=== PATIENT | female | born 1980 | race Caucasian/White ===

== ENCOUNTER 2017-07-17 14:57 | Emergency (ER) | payer OTHER ==
--- NOTE | 2017-07-17 15:04 | PDOC ---
Rapid Medical Evaluation Time Seen by Provider: 07/17/17 14:59 Medical Evaluation: 07/17/17 14:59 I have performed a brief in-person evaluation of this patient. The patient presents with a chief complaint of: lump to neck x 3 days, "last night i didn't feel good", +nausea, dry mouth, denies f/v/d Pertinent physical exam findings: tenderness to L side of neck I have ordered the following: soft tissue neck The patient will proceed to the ED for further evaluation. Discharge Disposition - Diagnosis Lump on neck - Referrals - Patient Instructions - Post Discharge Activity
[2017-07-17 15:11] VITALS: BMI 32.4
--- NOTE | 2017-07-17 16:58 | PDOC ---
History of Present Illness - General Chief Complaint: Wound Stated Complaint: NECK PAIN, ABSCESS Time Seen by Provider: 07/17/17 14:59 History Source: Patient - History of Present Illness Timing/Duration: other Associated Symptoms: denies: fever/chills, malaise, nausea/vomiting Past History - Past Medical History Allergies/Adverse Reactions: Allergies Allergy/AdvReac Type Severity Reaction Status Date / Time seafood Allergy Uncoded 07/17/17 15:06 Home Medications: Ambulatory Orders NK [No Known Home Medication] 07/17/17 COPD: No - Suicide/Smoking/Psychosocial Hx Smoking History: Never smoked Have you smoked in the past 12 months: No Information on smoking cessation initiated: No Substance Use Type: None Review of Systems - Review of Systems Constitutional: No: Chills, Fever, Unexplained wgt Loss HEENTM: No: Ear Pain, Throat Pain, Mouth Pain Respiratory: No: Cough *Physical Exam - Vital Signs Last Vital Signs Temp Pulse Resp BP Pulse Ox 98.4 F 77 18 107/75 100 07/17/17 15:07 07/17/17 15:07 07/17/17 15:07 07/17/17 15:07 07/17/17 15:07 - Physical Exam General Appearance: Yes: Appropriately Dressed. No: Apparent Distress HEENT: positive: Normal Voice, Other (~3-4cm hard, fixed, tender mass to chin/ submental area, no fluctuance, no overlying erythema,) Neck: positive: Supple Respiratory/Chest: negative: Respiratory Distress Integumentary: positive: Dry, Warm Neurologic: positive: Fully Oriented, Alert, Normal Mood/Affect Medical Decision Making - Medical Decision Making 07/17/17 16:44 37-year-old female, no significant history, here with neck mass. Patient states several days ago, felt a painless small lump to left side of neck, that disappeared but now complaining of chin and submental swelling. No trauma. Denies dental pain, URI symptoms, fever, chills, nausea and vomiting. No unexplained weight loss. No tobacco history. No history of similar symptoms. No history of salivary gland disorders. See exam Possible facial/neck abscess vs lymphadenopathy vs salivary gland d/o vs malignancy Stable and maintaining airway w/ ~3-4 cm hard, tender, fixed mass to chin/ submental area -pain control -labs -CT 07/17/17 17:01 *DC/Admit/Observation/Transfer Diagnosis at time of Disposition: Lump on neck - Referrals Referrals: Kait St MD [Primary Care Provider] - - Patient Instructions - Post Discharge Activity
[2017-07-17 17:31] LABS: BASO % 0.5 % (0-2.0); EOS % 2.3 % (0-4.5); HEMATOCRIT 40.3 % (32.4-45.2); HEMOGLOBIN 13.8 GM/dL (10.7-15.3); LYMPH % 28.3 % (8-40); MCH 29.2 pg (25.7-33.7); MCHC 34.2 g/dl (32.0-36.0); MEAN CELL VOLUME 85.4 fl (80-96); MEAN PLT VOLUME 9.4 fl (7.5-11.1); MONO % 7.1 % (3.8-10.2); NEUT % 61.8 % (42.8-82.8); PLATELET COUNT 248 K/MM3 (134-434); RBC 4.72 M/mm3 (3.60-5.2); RDW 13.5 % (11.6-15.6); WHITE BLOOD COUNT 6.8 K/mm3 (4.0-10.0)
[2017-07-17 18:08] LABS: ALBUMIN 4.4 g/dl (3.4-5.0); ANION GAP 9 (8-16); BILIRUBIN,TOTAL 0.6 mg/dL (0.2-1.0); BLOOD UREA NITROGEN 12 mg/dL (7-18); CALCIUM 9.2 mg/dL (8.5-10.1); CHLORIDE 107 mmol/L (98-107); CO2 27 mmol/L (21-32); CREATININE 0.6 mg/dL (0.55-1.02); GLUCOSE,RANDOM 75 mg/dL (74-106); POTASSIUM 3.7 mmol/L (3.5-5.1); SGOT/AST 62 U/L (15-37); SGPT/ALT 82 U/L (12-78); SODIUM 143 mmol/L (136-145)
[2017-07-17 18:09] LABS: ALK PHOS 85 U/L (45-117); TOT PROT 8.1 g/dl (6.4-8.2)
--- NOTE | 2017-07-17 19:39 | PDOC ---
*Physical Exam - Vital Signs Last Vital Signs Temp Pulse Resp BP Pulse Ox 98.4 F 77 18 107/75 100 07/17/17 15:07 07/17/17 15:07 07/17/17 15:07 07/17/17 15:07 07/17/17 15:07 - Physical Exam General Appearance: Yes: Appropriately Dressed HEENT: positive: Other (submandibular edema. + palpable tender mobile mass, erythema and warm to touch) ED Treatment Course - LABORATORY CBC & Chemistry Diagram: 07/17/17 17:24 07/17/17 17:24 - ADDITIONAL ORDERS Additional order review: Laboratory Results 07/17/17 07/17/17 07/17/17 17:24 17:24 16:16 Sodium 143 Potassium 3.7 Chloride 107 Carbon Dioxide 27 Anion Gap 9 BUN 12 Creatinine 0.6 Creat Clearance w eGFR > 60 Random Glucose 75 Calcium 9.2 Total Bilirubin 0.6 AST 62 H ALT 82 H Alkaline Phosphatase 85 Total Protein 8.1 Albumin 4.4 Serum , Qual Negative Urine HCG, Qual Negative 07/17/17 17:24 RBC 4.72 MCV 85.4 MCHC 34.2 RDW 13.5 MPV 9.4 Neutrophils % 61.8 Lymphocytes % 28.3 Monocytes % 7.1 Eosinophils % 2.3 D Basophils % 0.5 Medical Decision Making - Medical Decision Making 07/19/17 02:[address]: subcutaneous edema, reactive lymph nodes will treat cellulitis. close pmd follow up for wound check. strict return precautions reviewed with patient. *DC/Admit/Observation/Transfer Diagnosis at time of Disposition: Lump on neck Cellulitis Qualifiers: Site of cellulitis: face Qualified Code(s): L03.211 - Cellulitis of face - Discharge Dispostion Disposition: HOME - Prescriptions Prescriptions: Cephalexin Monohydrate [Keflex -] 500 mg PO Q8H #28 capsule Sulfamethoxazole/Trimethoprim [Bactrim Ds -] 1 tab PO BID #14 tablet - Referrals Referrals: Kait St MD [Primary Care Provider] - - Patient Instructions Printed Discharge Instructions: DI for Wound Infection Additional Instructions: apply warm compress to the area. take cephalexin and bactrim as prescribed. take ibuprofen for pain. follow up with your doctor for a wound check in 2 days. - Post Discharge Activity Forms/Work/School Notes: Back to Work
[2017-07-17] MEDS ORDERED: SULFAMETHOXAZOLE/TRIMETHOPRIM 800MG/160MG D.S. TABLET PO ONE (20:25)
[2017-07-17] MEDS ORDERED: CEPHALEXIN MONOHYDRATE 500 MG CAPSULE (UD) PO ONE (20:25)
[2017-07-17] MEDS ORDERED: SULFAMETHOXAZOLE/TRIMETHOPRIM 800MG/160MG D.S. TABLET ONE (20:34)
[2017-07-17] MEDS ORDERED: CEPHALEXIN MONOHYDRATE 500 MG CAPSULE (UD) ONE (20:34)
[2017-07-17 20:47] VITALS: BP 124/78; PULSE 76; TEMP 97.8
== END 2017-07-17 20:47 | disposition home or self-care (01) ==
LOC: JERFT 14:57 → JER 14:57
DX: L03.211 Cellulitis of face (principal); Z91.013 Allergy to seafood
CPT/HCPCS: 36415; 70491-TC; 80053; 84703; 85025; 99282-25

== ENCOUNTER 2018-06-13 19:27 | Emergency (ER) | payer OTHER ==
[2018-06-13 20:16] VITALS: BMI 30.8
[2018-06-13] MEDS ORDERED: ACETAMINOPHEN 325 MG TABLET (FP) PO ONE (20:35)
[2018-06-13] MEDS ORDERED: ACETAMINOPHEN 325 MG TABLET (FP) ONE (20:54)
[2018-06-13 21:09] LABS: BASO % 0.3 % (0-2.0); EOS % 3.2 % (0-4.5); HEMATOCRIT 37.6 % (32.4-45.2); HEMOGLOBIN 13.3 GM/dL (10.7-15.3); LYMPH % 11.6 % (8-40); MCH 30.1 pg (25.7-33.7); MCHC 35.5 g/dl (32.0-36.0); MEAN CELL VOLUME 84.6 fl (80-96); MEAN PLT VOLUME 9.8 fl (7.5-11.1); MONO % 8.5 % (3.8-10.2); NEUT % 76.4 % (42.8-82.8); PLATELET COUNT 192 K/MM3 (134-434); RBC 4.44 M/mm3 (3.60-5.2); RDW 13.9 % (11.6-15.6); WHITE BLOOD COUNT 8.5 K/mm3 (4.0-10.0)
[2018-06-13 21:30] LABS: ALBUMIN 4.1 g/dl (3.4-5.0); ALK PHOS 87 U/L (45-117); ANION GAP 8 MMOL/L (8-16); BILIRUBIN,TOTAL 0.4 mg/dL (0.2-1); BLOOD UREA NITROGEN 10 mg/dL (7-18); CALCIUM 8.2 mg/dL (8.5-10.1); CHLORIDE 107 mmol/L (98-107); CO2 25 mmol/L (21-32); CREATININE 0.6 mg/dL (0.55-1.3); GLUCOSE,RANDOM 78 mg/dL (74-106); POTASSIUM 4.1 mmol/L (3.5-5.1); SGOT/AST 49 U/L (15-37); SGPT/ALT 56 U/L (13-61); SODIUM 139 mmol/L (136-145); TOT PROT 7.4 g/dl (6.4-8.2)
--- NOTE | 2018-06-13 22:17 | PDOC ---
History of Present Illness <Immanuel Frank - Last Filed: 06/13/18 23:03> - History of Present Illness Initial Comments: 06/13/18 22:10 The patient is a 38 year old female with no PMH who presents to the emergency department via EMS with chest pain. The patient notes she woke up feeling unwell today, with nasal congestion and cough. She went shopping, picked up her son from school, and when she went to lay down she started to experience chest pain. The patient notes she started to panic, started shaking and felt short of breath. The patient notes her symptoms mostly resolved since coming to the ED, but she still endorses some tingling sensation in her arm. The patient reports that she had a similar episode 4 years ago and was told she had a respiratory infection. The patient has a family history of heart attack (paternal father). The patient denies s fever, chills, nausea, vomit, diarrhea, constipation, dysuria, frequency, urgency and hematuria. Allergies: NKDA Past surgical history:None reported Social history: No tobacco use. Occasional alcohol use. PCP: Jose D Florez <Walter Alexander - Last Filed: 06/13/18 23:44> - General Chief Complaint: Chest Pain Stated Complaint: CHEST PAIN Time Seen by Provider: 06/13/18 19:57 Past History <Immanuel Frank - Last Filed: 06/13/18 23:03> - Past Medical History COPD: No Other medical history: denies - Immunization History Td Vaccination: Yes TDAP Vaccination: Yes Immunization Up to Date: Yes - Suicide/Smoking/Psychosocial Hx Smoking History: Never smoked Have you smoked in the past 12 months: No Information on smoking cessation initiated: No Hx Alcohol Use: No Drug/Substance Use Hx: No Substance Use Type: None <Walter Alexander - Last Filed: 06/13/18 23:44> - Past Medical History Allergies/Adverse Reactions: Allergies Allergy/AdvReac Type Severity Reaction Status Date / Time No Known Drug Allergies Allergy Verified 06/13/18 20:40 seafood Allergy Uncoded 07/17/17 15:06 Home Medications: Ambulatory Orders Naproxen/Esomeprazole Mag [Vimovo Dr 500-20 mg Tablet] 1 each PO BID 06/13/18 Review of Systems - Review of Systems Comments:: 06/13/18 22:17 "GENERAL/CONSTITUTIONAL: No fever or chills. No weakness. HEAD, EYES, EARS, NOSE AND THROAT: (+) runny nose. No change in vision. No ear pain or discharge. No sore throat. CARDIOVASCULAR: (+) chest pain, no loss of consciousness RESPIRATORY: (+) dry cough. no wheezing, or hemoptysis. GASTROINTESTINAL: no vomiting, diarrhea or constipation. GENITOURINARY: No dysuria, frequency, or change in urination. MUSCULOSKELETAL: No joint or muscle swelling or pain. No neck or back pain. SKIN: No rash NEUROLOGIC: No vertigo, no change in strength/sensation. ENDOCRINE: No increased thirst. No abnormal weight change. HEMATOLOGIC/LYMPHATIC: No anemia, easy bleeding, or history of blood clots. ALLERGIC/IMMUNOLOGIC: No hives or skin allergy. <Walter Alexander - Last Filed: 06/13/18 23:44> *Physical Exam - Vital Signs Last Vital Signs Temp Pulse Resp BP Pulse Ox 98.1 F 87 20 114/73 100 06/13/18 20:14 06/13/18 20:14 06/13/18 20:14 06/13/18 20:14 06/13/18 20:14 <Immanuel Frank - Last Filed: 06/13/18 23:03> - Vital Signs Last Vital Signs Temp Pulse Resp BP Pulse Ox 98.1 F 87 20 114/73 100 06/13/18 20:14 06/13/18 20:14 06/13/18 20:14 06/13/18 20:14 06/13/18 20:14 - Physical Exam Comments: 06/13/18 22:17 "GENERAL: Awake, alert, and fully oriented, in no acute distress. HEAD: No signs of trauma EYES: PERRLA, EOMI, sclera anicteric, conjunctiva clear ENT: Auricles normal inspection, hearing grossly normal, nares patent, oropharynx clear without exudates. Moist mucosa NECK: Nontender, no stepoffs, Normal ROM, supple, no lymphadenopathy, JVD, or masses LUNGS: Breath sounds equal, clear to auscultation bilaterally. No wheezes, and no crackles HEART: Regular rate and rhythm, normal S1 and S2, no murmurs, rubs or gallops ABDOMEN: Soft, nontender, normoactive bowel sounds. No guarding, no rebound. No masses EXTREMITIES: Normal range of motion, no edema. No clubbing or cyanosis. No cords, erythema, or tenderness NEUROLOGICAL: Cranial nerves II through XII intact. 5/5 strength and sensation in all extremities, Normal speech, normal gait, normal cerebellar function SKIN: Warm, Dry, normal turgor, no rashes or lesions noted. <Ou,Walter - Last Filed: 06/13/18 23:44> Moderate Sedation - Procedure Monitoring Vital Signs: Procedure Monitoring Vital Signs Temperature 98.1 F 06/13/18 20:14 Pulse Rate 87 06/13/18 20:14 Respiratory Rate 20 06/13/18 20:14 Blood Pressure 114/73 06/13/18 20:14 O2 Sat by Pulse Oximetry (%) 100 06/13/18 20:14 <Immanuel Frank - Last Filed: 06/13/18 23:03> - Procedure Monitoring Vital Signs: Procedure Monitoring Vital Signs Temperature 98.1 F 06/13/18 20:14 Pulse Rate 87 06/13/18 20:14 Respiratory Rate 20 06/13/18 20:14 Blood Pressure 114/73 06/13/18 20:14 O2 Sat by Pulse Oximetry (%) 100 06/13/18 20:14 <Ou,Walter - Last Filed: 06/13/18 23:44> Heart Score/ECG Review - History History: Slightly suspicious - Electrocardiogram EKG: Normal - Age Age: </= 45 - Risk Factors Risk Factors Heart Score: Yes Positive family hx of cardiac disease Based on the list above the patient has:: 1-2 risk factors - Troponin Troponin: </= normal limit - Score Heart Score - Total: 1 - ECG Impressions Comment:: 06/13/18 22:17 NSR, no ELSA/STDs, no TWIs, axis wnl, intervals wnl , rate 78 <Ou,Walter - Last Filed: 06/13/18 23:44> ED Treatment Course - LABORATORY CBC & Chemistry Diagram: 06/13/18 20:51 06/13/18 20:51 - ADDITIONAL ORDERS Additional order review: Laboratory Results 06/13/18 06/13/18 21:58 20:51 Sodium 139 Potassium 4.1 Chloride 107 Carbon Dioxide 25 Anion Gap 8 BUN 10 Creatinine 0.6 Creat Clearance w eGFR 112.49 Random Glucose 78 Calcium 8.2 L Total Bilirubin 0.4 AST 49 H ALT 56 Alkaline Phosphatase 87 Creatine Kinase 168 Creatine Kinase Index 0.6 CK-MB (CK-2) 1.1 Troponin I < 0.02 Total Protein 7.4 Albumin 4.1 Urine Color Yellow Urine Appearance Clear Urine pH 6.5 Ur Specific [place] 1.014 Urine Protein Negative Urine Glucose (UA) Negative Urine Ketones Negative Urine Blood Negative Urine Nitrite Negative Urine Bilirubin Negative Urine Urobilinogen 1.0 Ur Leukocyte Esterase Trace Urine WBC (Auto) 1 Urine RBC (Auto) 2 Urine Casts (Auto) 0 U Epithel Cells (Auto) 0.8 Urine Bacteria (Auto) 22.842 Urine HCG, Qual Negative 06/13/18 20:51 RBC 4.44 MCV 84.6 MCHC 35.5 RDW 13.9 MPV 9.8 Neutrophils % 76.4 D Lymphocytes % 11.6 D Monocytes % 8.5 Eosinophils % 3.2 Basophils % 0.3 - Medications Given in the ED: ED Medications Discontinued Medications Generic Name Dose Route Start Last Admin Trade Name Freq PRN Reason Stop Dose Admin Acetaminophen 650 mg 06/13/18 20:35 06/13/18 20:56 Tylenol - PO 06/13/18 20:36 650 mg ONCE ONE Administration <Immanuel Frank - Last Filed: 06/13/18 23:03> - LABORATORY CBC & Chemistry Diagram: 06/13/18 20:51 06/13/18 20:51 - ADDITIONAL ORDERS Additional order review: Laboratory Results 06/13/18 20:51 Sodium 139 Potassium 4.1 Chloride 107 Carbon Dioxide 25 Anion Gap 8 BUN 10 Creatinine 0.6 Creat Clearance w eGFR 112.49 Random Glucose 78 Calcium 8.2 L Total Bilirubin 0.4 AST 49 H ALT 56 Alkaline Phosphatase 87 Creatine Kinase 168 Creatine Kinase Index 0.6 CK-MB (CK-2) 1.1 Troponin I < 0.02 Total Protein 7.4 Albumin 4.1 06/13/18 20:51 RBC 4.44 MCV 84.6 MCHC 35.5 RDW 13.9 MPV 9.8 Neutrophils % 76.4 D Lymphocytes % 11.6 D Monocytes % 8.5 Eosinophils % 3.2 Basophils % 0.3 - RADIOLOGY Radiology Studies Ordered: Category Date Time Status CHEST PA & LAT [RAD] Stat Radiology 06/13/18 20:33 Ordered - Medications Given in the ED: ED Medications Discontinued Medications Generic Name Dose Route Start Last Admin Trade Name Naresh PRN Reason Stop Dose Admin Acetaminophen 650 mg 06/13/18 20:35 06/13/18 20:56 Tylenol - PO 06/13/18 20:36 650 mg ONCE ONE Administration <Walter Alexander - Last Filed: 06/13/18 23:44> Medical Decision Making - Medical Decision Making 06/13/18 22:18 38 F with atypical chest pain. Likely viral URI as pt also complains of dry cough and nasal congestion. Will r/o ACS. EKG wnl. - Labs, trop - CXR 06/13/18 23:42 Labs wnl CXR clear Pt likely with viral URI Pt is well appearing, with normal vitals. Clinically stable for DC at this time. I discussed the physical exam findings, ancillary test results and final diagnoses with the patient. I answered all of the patient's questions. The patient was satisfied with the care received and felt comfortable with the discharge plan and treatment plan. The patient agrees to follow up with the primary care physician within 24-72 hours. <Walter Alexander - Last Filed: 06/13/18 23:44> *DC/Admit/Observation/Transfer - Attestations Scribe Attestion: 06/13/18 23:03 Documentation prepared by Immanuel Frank, acting as medical equipment technician for Walter Alexander MD, <Immanuel Frank - Last Filed: 06/13/18 23:03> - Attestations Physician Attestion: 06/13/18 23:43 I, Dr. Walter Alexander MD, attest that this document has been prepared under my direction and personally reviewed by me in its entirety. I further attest, that it accurately reflects all work, treatment, procedures and medical decision -making performed by me. <Walter Alexander - Last Filed: 06/13/18 23:44> Diagnosis at time of Disposition: Atypical chest pain - Discharge Dispostion Disposition: HOME - Referrals Referrals: Jose D Chua [Primary Care Provider] - - Patient Instructions Printed Discharge Instructions: DI for Atypical Chest Pain Additional Instructions: You likely have a viral infection causing your symptoms. Take tylenol or motrin as needed for pain. If you experience worsening chest pain, shortness of breath, or any other concerning symptoms, return to the ER immediately. Otherwise, follow up with your primary doctor within 1 week. - Post Discharge Activity
[2018-06-13 22:47] LABS: HCG,QUALITATIVE URINE Negative
[2018-06-13 22:50] LABS: EPI CELLS 0.8 /HPF (0-5); HYALINE CASTS 0 /hpf (0-8); PH,URINE 6.5 (5.0-8.0); URINE APPEARANCE CLEAR; URINE BACTERIA 22.842 /hpf (NEGATIVE); URINE BILIRUBIN NEGATIVE (<2.0 mg/dL); URINE COLOR YELLOW; URINE GLUCOSE (UA) NEGATIVE (NEGATIVE); URINE KETONE NEGATIVE (NEGATIVE); URINE LEUK ESTERASE TRACE (NEGATIVE); URINE NITRITE NEGATIVE (NEGATIVE); URINE PROTEIN NEGATIVE (NEGATIVE); URINE RBC 2 /hpf (0-4); URINE WBC 1 /hpf (0-5)
[2018-06-14 00:04] VITALS: BP 111/73; PULSE 73; TEMP 98
--- NOTE | 2018-06-14 16:36 | EKG ---
Test Reason : Blood Pressure : / mmHG Vent. Rate : 078 BPM Atrial Rate : 078 BPM P-R Int : 126 ms QRS Dur : 072 ms QT Int : 400 ms P-R-T Axes : 050 043 010 degrees QTc Int : 456 ms NORMAL SINUS RHYTHM NORMAL ECG NO PREVIOUS ECGS AVAILABLE Confirmed by DAVID MONIQUE MD ([id number]) on 06/14/2018 4:36:37 PM Referred By: Confirmed By:DAVID MONIQUE MD
== END 2018-06-14 00:01 | disposition home or self-care (01) ==
LOC: JER 19:27
DX: R07.89 Other chest pain (principal)
CPT/HCPCS: 36415; 71046-TC-FY; 80053; 81003; 82550; 82553; 84484; 84703; 85025; 93005; 93010; 99283-25

== ENCOUNTER 2018-09-17 08:20 | Emergency (ER) | payer OTHER ==
[2018-09-17 08:28] VITALS: BP 136/80; PULSE 82; TEMP 98.5; BMI 28.3
[2018-09-17] MEDS ORDERED: CYCLOBENZAPRINE HCL 10 MG TABLET (FP) PO ONE (09:11)
[2018-09-17] MEDS ORDERED: IBUPROFEN 400 MG TABLET (FP) PO ONE ×3 (09:11→09:18)
[2018-09-17] MEDS ORDERED: CYCLOBENZAPRINE HCL 10 MG TABLET (FP) ONE (09:16)
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
== END 2018-09-17 09:51 | disposition home or self-care (01) ==
LOC: JERFT 08:20
DX: M54.2 Cervicalgia (principal); S13.4XXA Sprain of ligaments of cervical spine, initial encounter; V43.52XA Car driver injured in collision with other type car in traffic accident, initial encounter; Y93.89 Activity, other specified; Y92.410 Unspecified street and highway as the place of occurrence of the external cause
CPT/HCPCS: 72050-TC-FY; 99281-25

== ENCOUNTER 2019-10-17 11:53 | Emergency (ER) | payer OTHER ==
--- NOTE | 2019-10-17 12:11 | PDOC ---
Rapid Medical Evaluation Time Seen by Provider: 10/17/19 12:00 Medical Evaluation: Allergies Allergy/AdvReac Type Severity Reaction Status Date / Time No Known Drug Allergies Allergy Verified 09/17/18 08:25 seafood Allergy Uncoded 09/17/18 08:25 10/17/19 12:08 I performed a brief in-person evaluation of this patient. Pt is a 39 y/o female with history of asthma who presents to the ED with chest pressure and dyspnea on exertion for the last 3-4 days. She states the symptoms started today after starting Flagyl for BV. The patient denies any recent travel or known COVID contacts. Pertinent physical exam findings: clear lungs, O2 saturation 99%, speaking in full sentences I have ordered the following: ekg, cxr, labs Patient to proceed to ED for further evaluation. Discharge Disposition - Diagnosis Chest pressure - Referrals - Patient Instructions - Post Discharge Activity
[2019-10-17 12:16] VITALS: TEMP 98.9; BMI 31.5
[2019-10-17 12:51] LABS: BASO % 0.6 % (0-2.0); EOS % 1.2 % (0-4.5); HEMATOCRIT 41.5 % (32.4-45.2); HEMOGLOBIN 14.1 GM/dL (10.7-15.3); LYMPH % 18.8 % (8-40); MCH 28.9 pg (25.7-33.7); MONO % 7.2 % (3.8-10.2); NEUT % 72.2 % (42.8-82.8); PLATELET COUNT 238 K/MM3 (134-434); RBC 4.89 M/mm3 (3.60-5.2); RDW 13.7 % (11.6-15.6); WHITE BLOOD COUNT 7.8 K/mm3 (4.0-10.0)
[2019-10-17 12:59] LABS: PROTHROMBIN TIME (PATIENT) 11.8 SEC (9.7-13.0)
[2019-10-17 13:02] LABS: ACTIVATED PTT 27.9 SECONDS (25.2-36.5)
[2019-10-17 13:17] LABS: ALBUMIN 4.2 g/dl (3.4-5.0); ALK PHOS 76 U/L (45-117); ANION GAP 5 MMOL/L (8-16); BILIRUBIN,TOTAL 0.9 mg/dL (0.2-1); BLOOD UREA NITROGEN 14.1 mg/dL (7-18); CHLORIDE 107 mmol/L (98-107); CO2 28 mmol/L (21-32); CREATININE 0.6 mg/dL (0.55-1.3); GLUCOSE,RANDOM 82 mg/dL (74-106); MAGNESIUM 2.4 mg/dL (1.8-2.4); POTASSIUM 4.2 mmol/L (3.5-5.1); SGOT/AST 97 U/L (15-37); SGPT/ALT 132 U/L (13-61); SODIUM 140 mmol/L (136-145); TOT PROT 7.9 g/dl (6.4-8.2)
--- NOTE | 2019-10-17 14:14 | PDOC ---
History of Present Illness - General Chief Complaint: Chest Pain Stated Complaint: SOB Time Seen by Provider: 10/17/19 12:00 - History of Present Illness Initial Comments: 10/17/19 14:08 39yo F w/ asthma, amenorrhea, and on flagyl for BV p/w 3days intermittent CP w/ associated nausea and SOB. It started on Saturday while she was walking and resolved when she stopped to rest. She endorses R-sided heaviness and one episode of discomfort in the L neck. It tends to be exertional, and her chest is sensitive to the touch. Denies long trips/sedentary periods, trauma, SOB at rest, vomiting, leg pain, cough, fever, sore throat, recent illness, or similar episode. Also denies breast discharge or use of OCP contraception. Allergies to fish and takes Vitamin D3 PMH: fatty liver, Sickle cell trait, asthma, and amenorrhea. PSH: 10yrs ago FHx: father has had multiple [place], alive and in his 60s now. SHx: former smoker - quit 10 yrs ago. denies EtOH and illicit drug use. ROS CONSTITUTIONAL: Absent: fever, chills, diaphoresis, generalized weakness, malaise, loss of appetite HEENT: Absent: rhinorrhea, nasal congestion, throat pain CARDIOVASCULAR: Absent: syncope, palpitations, irregular heart rate, lightheadedness, peripheral edema RESPIRATORY: ++ shortness of breath, dyspnea with exertion, Absent: cough,orthopnea, wheezing, stridor, hemoptysis GASTROINTESTINAL: Absent: abdominal distension, nausea, vomiting, diarrhea, constipation, GENITOURINARY: Absent: dysuria, frequency, urgency, hesitancy, hematuria, flank pain, genital pain taking flagyl for bacterial vaginosis MUSCULOSKELETAL: Absent: myalgia, arthralgia, joint swelling SKIN: Absent: rash, itching, pallor HEMATOLOGIC/IMMUNOLOGIC: Absent: easy bleeding ENDOCRINE: Absent: unexplained weight gain, unexplained weight loss, heat intolerance, cold intolerance NEUROLOGIC: Absent: headache, focal weakness or paresthesias, dizziness, unsteady gait, seizure, mental status changes, bladder or bowel incontinence PSYCHIATRIC: Absent: anxiety, depression, suicidal or homicidal ideation, hallucinations. PE GENERAL: Well developed, well nourished. Awake and alert. No acute distress. HEENT: Normocephalic, atraumatic. PERRLA, EOMI. No conjunctival pallor. Sclera are non- icteric. Moist mucous membranes. Oropharynx is clear. NECK: Supple. Full ROM. No JVD. No thyromegaly. No lymphadenopathy. CARDIOVASCULAR: Regular rate and rhythm. No murmurs, rubs, or gallops. Distal pulses are 2+ and symmetric. PULMONARY: No evidence of respiratory distress. Lungs clear to auscultation bilaterally. No wheezing, rales or rhonchi. R parasternal chest wall is mildly tender to palpation ABDOMINAL: Soft. Non-tender. Non-distended. No rebound or guarding. No organomegaly. Normoactive bowel sounds. RUQ discomfort with palpation MUSCULOSKELETAL Normal range of motion at all joints. No bony deformities or tenderness. No CVA tenderness. EXTREMITIES: No cyanosis. No clubbing. No edema. No calf tenderness. SKIN: Warm and dry. Normal capillary refill. No rashes. No jaundice. NEUROLOGICAL: Alert, awake, appropriate. PSYCHIATRIC: Cooperative. Good eye contact. Appropriate mood and affect. Assessment: 39yo F w/ fatty liver, asthma, amenorrhea, and on flagyl for BV p/w 3 days non specific CP brought on by exertion and relieved by rest. Plan: 1. cardiac workup - exertional CP + FHx cardiac disease 2. RUQ POCUS - she meets epidemiological criteria for gallbladder disease MDM: Cardiac labs, EKG, and CXR read as normal. RUQ POCUS showed clear GB w/o pericholecystic fluid, no stones, no wall thickening, no sludge. Fatty liver seen. Metronidazole's most commonly affected system in terms of side effects is gastrointestinal. The fatty liver history + RUQ tenderness found on exam + the use of metronidazole. I have no concerns for any emergent process with this patient. Will d/c home w/ follow up with GI and patient given strict return precautions. 10/17/19 14:15 10/17/19 14:29 Past History - Medical History Allergies/Adverse Reactions: Allergies Allergy/AdvReac Type Severity Reaction Status Date / Time No Known Drug Allergies Allergy Verified 10/17/19 12:10 seafood Allergy Uncoded 10/17/19 12:10 Home Medications: Ambulatory Orders Methocarbamol [Robaxin -] 500 mg PO BID PRN #14 tablet 09/17/18 Naproxen 500 mg PO BID PRN #20 tablet 09/17/18 Asthma: Yes COPD: No - Immunization History Td Vaccination: Yes TDAP Vaccination: Yes Immunization Up to Date: Yes - Psycho-Social/Smoking History Smoking History: Former smoker Have you smoked in the past 12 months: No If you are a former smoker, when did you quit?: 2009 Information on smoking cessation initiated: Yes - Substance Abuse Hx (Audit-C & DAST Scrn) How often the patient has a drink containing alcohol: Never Score: In Men: 4 or > Positive; In Women: 3 or > Positive: 0 Screen Result (Pos requires Nsg. Audit-10AR): Negative In the last yr the pt used illegal drug/Rx for NonMed reason: No Score: Yes response is considered Positive: 0 Screen Result (Positive result requires Nsg. DAST-10): Negative *Physical Exam - Vital Signs Last Vital Signs Temp Pulse Resp BP Pulse Ox 98.9 F 76 20 114/88 98 10/17/19 12:10 10/17/19 12:49 10/17/19 12:30 10/17/19 12:10 10/17/19 12:49 ED Treatment Course - LABORATORY CBC & Chemistry Diagram: 10/17/19 12:20 10/17/19 12:20 - ADDITIONAL ORDERS Additional order review: Laboratory Results 10/17/19 10/17/19 10/17/19 12:35 12:20 12:20 PT with INR 11.80 INR 1.00 PTT (Actin FS) 27.9 Sodium 140 Potassium 4.2 Chloride 107 Carbon Dioxide 28 Anion Gap 5 L BUN 14.1 Creatinine 0.6 Est GFR (CKD-EPI)AfAm 134.01 Est GFR (CKD-EPI)NonAf 115.63 Random Glucose 82 Calcium 9.0 Magnesium 2.4 Total Bilirubin 0.9 AST 97 H ALT 132 H Alkaline Phosphatase 76 Creatine Kinase 120 Troponin I < 0.02 Total Protein 7.9 Albumin 4.2 Urine HCG, Qual Negative 10/17/19 12:20 RBC 4.89 MCV 85.0 MCHC 34.0 RDW 13.7 MPV 10.0 Neutrophils % 72.2 Lymphocytes % 18.8 D Monocytes % 7.2 Eosinophils % 1.2 Basophils % 0.6 Discharge - Discharge Information Problems reviewed: Yes Clinical Impression/Diagnosis: Abdominal pain Qualifiers: Abdominal location: right upper quadrant Qualified Code(s): R10.11 - Right upper quadrant pain Disposition: HOME - Admission No - Follow up/Referral Referrals: Sandra Sykes DO [Primary Care Provider] - Rogelio Cortes MD [Staff Physician] - - Patient Discharge Instructions Patient Printed Discharge Instructions: DI for Abdominal Pain-Adult Additional Instructions: You came to the ED with right upper quadrant abdominal pain. We looked at your labs which showed mild elevation in your liver enzyme. We did a bedside ultrasound of your gallbladder. There were no signs of stone or infection or inflammation. Please follow up with the gastroenterology doctor to whom we have referred you within the next ten days. Come back to the ER with any new or worsening concerns. - Post Discharge Activity
[2019-10-17 14:24] VITALS: BP 109/72; PULSE 89
--- NOTE | 2019-10-17 14:46 | PDOC ---
Documentation entered by Immanuel Frank SCRIBE, acting as scribe for Karlene Dickson MD. Karlene Dickson MD: This documentation has been prepared by the Zac batista Xhesika, SCRIBE, under my direction and personally reviewed by me in its entirety. I confirm that the documentation accurately reflects all work, treatment, procedures, and medical decision making performed by me. Attending Attestation - Resident Resident Name: Perfecto Roberts - ED Attending Attestation I have performed the following: I have examined & evaluated the patient, The case was reviewed & discussed with the resident, I agree w/resident's findings & plan, Exceptions are as noted - HPI HPI: 10/17/19 12:48 The patient is a 39 year old female with a PMH of asthma, amenorrhea who presents to the emergency department for chest pain R>L X3 days. Pt describes her pain as a pressure, localized at her breast region, worse with trunkal movement, associated with a headache. Pt states she had a similar episode yesterday around her neck region. Pt states she was recently diagnosed with BV and is taking flagyl. The patient has a family history of heart attack (paternal father). Pt denies any breast pain, tenderness or discharge. The patient denies fever, chills, nausea, vomit, diarrhea, constipation, dysuria, frequency, urgency and hematuria. Allergies: NKDA. seafood PCP: Sandra Hoang - Physicial Exam PE: 10/17/19 14:42 General: well appearing Chest: CTAB, good air entry, no wheezes rales or rhonchi CVS: +s1 s2, RRR Abdomen: soft, nt, no rebound, no guarding, negative tirado's - Medical Decision Making 10/17/19 14:42 39 yo F here with atypical chest pain, FH of father with heart disease at age 61, low suspicion for ACS and EKG without ischemic changes, also doubt PE and PERC negative. No infectious complaints to suggest infectious etiology. Plan: -labs -cxr -if labs and imagaing unremarkable will d/c home with return precautions, recommend PMD f/u and supportive care at home (Of note patient reports she chronically has mild transaminitis) This clinical encounter is taking place during a federal and state health care emergency attributable to the novel [place] Virus pandemic. The [place] of the Department of Health and Human Services has declared, pursuant to the Public Health Service Act 319F-3 (42 U.S.C. 247d-6d), that a covered persons activities related to medical countermeasures against COVID-19 will be immune from liability under Federal and State law. Discharge - Discharge Information Problems reviewed: Yes Clinical Impression/Diagnosis: Abdominal pain Qualifiers: Abdominal location: right upper quadrant Qualified Code(s): R10.11 - Right upper quadrant pain Disposition: HOME - Follow up/Referral Referrals: Rogelio Cortes MD [Staff Physician] - Sandra Sykes DO [Primary Care Provider] - - Patient Discharge Instructions Patient Printed Discharge Instructions: DI for Abdominal Pain-Adult Additional Instructions: You came to the ED with right upper quadrant abdominal pain. We looked at your labs which showed mild elevation in your liver enzyme. We did a bedside ultrasound of your gallbladder. There were no signs of stone or infection or inflammation. Please follow up with the gastroenterology doctor to whom we have referred you within the next ten days. Come back to the ER with any new or worsening concerns. - Post Discharge Activity
--- NOTE | 2019-10-18 17:28 | EKG ---
Test Reason : Blood Pressure : / mmHG Vent. Rate : 074 BPM Atrial Rate : 074 BPM P-R Int : 112 ms QRS Dur : 066 ms QT Int : 422 ms P-R-T Axes : 037 030 010 degrees QTc Int : 468 ms POOR DATA QUALITY, INTERPRETATION MAY BE ADVERSELY AFFECTED NORMAL SINUS RHYTHM CANNOT RULE OUT ANTERIOR INFARCT , AGE UNDETERMINED ABNORMAL ECG WHEN COMPARED WITH ECG OF 13-JUN-2018 20:37, NO SIGNIFICANT CHANGE WAS FOUND Confirmed by MD Campbell, Cheo ([id number]) on 10/18/2019 5:27:37 PM Referred By: Confirmed By:Cheo Hightower MD
== END 2019-10-17 14:33 | disposition home or self-care (01) ==
LOC: JER 11:53
DX: R07.89 Other chest pain (principal); R10.11 Right upper quadrant pain
CPT/HCPCS: 36415; 71046-TC-FY; 80053; 82550; 83735; 84484; 84703; 85025; 85610; 85730; 93005; 93010; 99284-25

== ENCOUNTER 2020-08-07 03:24 | Emergency (ER) | payer OTHER ==
[2020-08-07 03:37] VITALS: BMI 29.6
[2020-08-07 05:02] VITALS: BP 117/81; PULSE 81; TEMP 98.3
[2020-08-07] MEDS ORDERED: predniSONE 20 MG TABLET (UD) PO ONE (06:57)
[2020-08-07] MEDS ORDERED: ACETAMINOPHEN 325 MG TABLET (FP) PO ONE (06:57)
[2020-08-07] MEDS ORDERED: predniSONE 20 MG TABLET (UD) ONE (06:59)
[2020-08-07] MEDS ORDERED: ACETAMINOPHEN 325 MG TABLET (FP) ONE (06:59)
== END 2020-08-07 07:15 | disposition home or self-care (01) ==
LOC: JER 03:24
DX: R22.0 Localized swelling, mass and lump, head (principal)
CPT/HCPCS: 70360-TC-FY; 99284-25

== ENCOUNTER 2020-09-21 11:11 | Day surgery (SDC) | payer OTHER ==
[2020-09-19 16:02] VITALS: BMI 30.8
[2020-09-21 11:58] VITALS: PULSE 80
[2020-09-21 13:28] VITALS: BP 102/65; TEMP 97.7
== END 2020-09-21 13:55 | disposition home or self-care (01) ==
LOC: FASU 11:11
PROVIDERS: ATTEND Internal Medicine Gastroenterology
PROC: 0DB68ZX Excision of Stomach, Via Natural or Artificial Opening Endoscopic, Diagnostic (ICD-10-PCS; 2020-09-21)
PROC: 0DB48ZX Excision of Esophagogastric Junction, Via Natural or Artificial Opening Endoscopic, Diagnostic (ICD-10-PCS; 2020-09-21)
PROC: 0DB98ZX Excision of Duodenum, Via Natural or Artificial Opening Endoscopic, Diagnostic (ICD-10-PCS; principal; 2020-09-21 12:41)
DX: K29.30 Chronic superficial gastritis without bleeding (principal); R10.13 Epigastric pain; Z87.19 Personal history of other diseases of the digestive system
CPT/HCPCS: 84703; 88305-TC; 88342-TC

== ENCOUNTER 2020-11-28 12:08 | Emergency (ER) | payer OTHER ==
[2020-11-28 12:22] VITALS: BP 112/79; PULSE 100; TEMP 98; BMI 30.2
[2020-11-28] MEDS ORDERED: DEXAMETHASONE SOD PHOSPHATE 10 MG/1 ML VIAL IM ONE (12:56)
[2020-11-28] MEDS ORDERED: DEXAMETHASONE SOD PHOSPHATE 10 MG/1 ML VIAL ONE (13:01)
== END 2020-11-28 13:17 | disposition home or self-care (01) ==
LOC: JERFT 12:08
PROC: 3E023NZ Introduction of Analgesics, Hypnotics, Sedatives into Muscle, Percutaneous Approach (ICD-10-PCS; principal; 2020-11-28)
DX: L50.9 Urticaria, unspecified (principal)
CPT/HCPCS: 96372; 99283-25; J1100

== ENCOUNTER 2021-04-26 09:48 | Day surgery (SDC) | payer OTHER ==
[2021-04-20 12:53] VITALS: BMI 30.9
[2021-04-26 12:03] VITALS: TEMP 97.7
[2021-04-26 12:27] VITALS: BP 103/70; PULSE 69
== END 2021-04-26 12:50 | disposition home or self-care (01) ==
LOC: FASU-ENDO 09:48
PROVIDERS: ATTEND Internal Medicine Gastroenterology
PROC: 0DBP8ZX Excision of Rectum, Via Natural or Artificial Opening Endoscopic, Diagnostic (ICD-10-PCS; principal; 2021-04-26 11:34)
DX: Z12.11 Encounter for screening for malignant neoplasm of colon (principal); K62.1 Rectal polyp; K64.1 Second degree hemorrhoids; K64.8 Other hemorrhoids; R19.4 Change in bowel habit
CPT/HCPCS: 84703; 88305-TC

== ENCOUNTER 2021-11-11 08:03 | Emergency (ER) | payer OTHER ==
[2021-11-11 08:34] VITALS: BP 101/72; PULSE 83; RESP 18; TEMP 98; BMI 30.2
[2021-11-11] MEDS ORDERED: ONDANSETRON 4 MG TABLET PO ONE (09:10)
[2021-11-11] MEDS ORDERED: ONDANSETRON *ODT* 4 MG TABLET ONE (09:19)
[2021-11-11 10:03] LABS: HCG,QUALITATIVE URINE Negative
[2021-11-11 10:21] LABS: PH,URINE 7.5 (5.0-8.0); URINE APPEARANCE CLEAR; URINE BILIRUBIN NEGATIVE (NEGATIVE); URINE COLOR YELLOW; URINE GLUCOSE (UA) NEGATIVE (NEGATIVE); URINE KETONE NEGATIVE (NEGATIVE); URINE LEUK ESTERASE NEGATIVE (NEGATIVE); URINE NITRITE NEGATIVE (NEGATIVE); URINE PROTEIN NEGATIVE (NEGATIVE); URINE UROBILINOGEN 0.2 mg/dL (0.2-1.0)
== END 2021-11-11 10:34 | disposition home or self-care (01) ==
LOC: JER 08:03
DX: R11.0 Nausea (principal); R35.0 Frequency of micturition
CPT/HCPCS: 81003; 82962; 84703; 87086; 93005; 93010; 99284-25

== ENCOUNTER 2021-11-24 06:21 | Emergency (ER) | payer OTHER ==
[2021-11-24 07:10] VITALS: RESP 20; BMI 27.1
[2021-11-24] MEDS ORDERED: SODIUM CHLORIDE 1,000 ML IV STA (07:53)
[2021-11-24] MEDS ORDERED: ONDANSETRON 4 MG/2 ML VIAL IVPUSH ONE (07:54)
[2021-11-24] MEDS ORDERED: ONDANSETRON 4 MG/2 ML VIAL ONE (08:01)
[2021-11-24 08:31] LABS: BASO % 0.4 % (0-2.0); EOS % 1.4 % (0-4.5); HEMATOCRIT 39.7 % (32.4-45.2); HEMOGLOBIN 13.8 GM/dL (10.7-15.3); LYMPH % 17.5 % (8-40); MCH 29.3 pg (25.7-33.7); MCHC 34.8 g/dl (32.0-36.0); MEAN CELL VOLUME 84.1 fl (80-96); MEAN PLT VOLUME 9.3 fl (7.5-11.1); MONO % 6.4 % (3.8-10.2); NEUT % 74.3 % (42.8-82.8); PLATELET COUNT 242 10^3/uL (134-434); RBC 4.72 M/mm3 (3.60-5.2); RDW 13.8 % (11.6-15.6); WHITE BLOOD COUNT 8.4 K/mm3 (4.0-10.0)
[2021-11-24 08:41] LABS: URINE APPEARANCE CLEAR; URINE BILIRUBIN NEGATIVE (NEGATIVE); URINE COLOR YELLOW; URINE GLUCOSE (UA) NEGATIVE (NEGATIVE); URINE KETONE NEGATIVE (NEGATIVE); URINE LEUK ESTERASE NEGATIVE (NEGATIVE); URINE NITRITE NEGATIVE (NEGATIVE); URINE PROTEIN NEGATIVE (NEGATIVE); URINE UROBILINOGEN 0.2 mg/dL (0.2-1.0)
[2021-11-24 08:52] LABS: ALBUMIN 4.1 g/dl (3.4-5.0)
[2021-11-24 08:56] LABS: BILIRUBIN,TOTAL 0.7 mg/dL (0.2-1); CREATININE 0.6 mg/dL (0.55-1.3); TOT PROT 7.7 g/dl (6.4-8.2)
[2021-11-24 09:50] VITALS: BP 110/62; PULSE 75; TEMP 97.9
== END 2021-11-24 09:50 | disposition home or self-care (01) ==
LOC: JER 06:21
PROC: 3E033GC Introduction of Other Therapeutic Substance into Peripheral Vein, Percutaneous Approach (ICD-10-PCS; principal; 2021-11-24)
PROC: 3E0337Z Introduction of Electrolytic and Water Balance Substance into Peripheral Vein, Percutaneous Approach (ICD-10-PCS; 2021-11-24)
DX: N76.0 Acute vaginitis (principal)
CPT/HCPCS: 36415; 80053; 81003; 84703; 85025; 87086; 99284-25

== ENCOUNTER 2022-10-28 11:09 | Emergency (ER) | payer OTHER ==
[2022-10-28 11:15] VITALS: BP 117/75; PULSE 85; RESP 16; TEMP 98.2; BMI 30.2
[2022-10-28] MEDS ORDERED: IBUPROFEN 600 MG TABLET (FP) PO ONE ×2 (13:03→13:05)
[2022-10-28] MEDS ORDERED: AMOX TR/POT CLAV 875MG/125MG TABLETS (FP) PO ONE (13:03)
[2022-10-28] MEDS ORDERED: AMOX TR/POT CLAV 875MG/125MG TABLETS (FP) ONE (13:06)
== END 2022-10-28 13:15 | disposition home or self-care (01) ==
LOC: JERFT 11:09
DX: S91.151A Open bite of right great toe without damage to nail, initial encounter (principal); M79.674 Pain in right toe(s); W54.0XXA Bitten by dog, initial encounter; Y93.89 Activity, other specified; Y92.89 Other specified places as the place of occurrence of the external cause
CPT/HCPCS: 99283-25